=== PATIENT | female | born 1950 | race Caucasian/White ===

== ENCOUNTER → 2017-06-01 | Outpatient (CLI) | payer OTHER ==
[~2017-06-01] VITALS: Ht 160 cm; Wt 83.9 kg
[~2017-06-01] MED LIST: LIPITOR10 MG PO; LISINOPRIL-HCT1 EAC2 PO; TOPROL XL25 MG PO
--- NOTE | ~2017-06-01 | S ---
[facility] [place] [address] SURGICAL PATH RPT PROCEDURE Name: RIIS HOBSON Ino Room #: REG [facility].#: [id number] Admission: 06/01/17 Date of : 46 Discharge: Report #: [id number] Path Case #: [id number] PATHOLOGY REPORT COLLECTION DATE: 06/01/2017 RECEIVED DATE: 06/01/2017 SUBMITTING PHYS: Dr. Red Esteves OTHER PHYS: Dr. Jefe Brown SPECIMEN(S) RECEIVED: A.Polyp at cecum B.Polyp at 60 cm * * * * * * * * * * * * FINAL DIAGNOSIS: A. Polyp, cecum, endoscopic biopsy: - Tubular adenoma. - Negative for high grade dysplasia. B. Polyp, at 60 cm, endoscopic biopsy: - Hyperplastic polyp. - Negative for dysplasia. (IUV:pit; 06/02/2017) PATHOLOGIST: Edwige Fields M.D. REPORT ELECTRONICALLY SIGNED BY: Edwige Fields M.D. DATE/TIME: 06/02/2017 14:23 * * * * * * * * * * * * GROSS PATHOLOGY: A. Received in formalin labeled "Iris Hobson, polyp cecum," is a segment of byers soft tissue measuring 0.5 cm in maximum dimension. The specimen is submitted entirely in cassette A1. B. Received in formalin labeled "Iris Hobson, polyp at 60 cm," are 2 segments of byers soft tissue measuring 0.7 x 0.2 x 0.2 cm in aggregate dimensions and ranging from 0.3 to 0.4 cm in maximum dimension. The specimen is submitted entirely in cassette B1. (TSD; 06/01/2017) CLINICAL HISTORY: History of polyps INITIAL CPT CODE(S): A; 22907 B; 71544 Professional services performed by [facility] at [facility] [address] [place] [address] SURGICAL PATH RPT PROCEDURE Name: IRIS HOBSON Room #: EYL Nino#: [id number] Admission: 06/01/17 Date of : 46 Discharge: Report #: [id number] Path Case #: [id number] [address], [place] [address] Technical services performed by [facility] at [address] [place] [address], [facility] [address] [address]. [place] [address] PHONE: [phone] DIRECTOR: Dante Knowles M.D. * * * END OF REPORT * * *
--- NOTE | ~2017-06-01 | P ---
[facility] [place] [address] PROCEDURE REPORT Name: PARESH HOBSON Room #: REG [facility]#: [id number] Admission: 06/01/17 Attend Phys: Red Esteves MD Discharge: Date of : 46 Report #: [id number] THIS REPORT FOR: //name// CC: Red Brown MD BRIEF HISTORY: The patient is a 67-year-old woman with a history of colon polyps including a proximal ascending colon polyp with recurrent polyp at the tattoo sites about 3 years ago. She was advised to return in 6 months and is now presenting. She has no new complaints. PREOPERATIVE DIAGNOSIS: History of colon polyps. POSTOPERATIVE DIAGNOSES: 1. Colon polyps. 2. Moderately severe diverticulosis coli. 3. Small hemorrhoids. MEDICATIONS: Deep sedation with propofol per anesthesia. SPECIMENS: 1. Diminutive polyp, cecum. 2. Diminutive polyp at 60 cm. ESTIMATED BLOOD LOSS: 3 mL. PROCEDURE: Colonoscopy to cecum and terminal ileum with biopsy. FINDINGS: Prior to propofol sedation, the procedure of colonoscopy discussed with the patient as well as potential risks, benefits, and complications. She indicates she understands and desires to proceed. With the patient in left lateral decubitus position, digital examination was completed, which revealed no abnormalities. Subsequently, the Singspiel video colonoscope was introduced in the rectum, advanced under direct vision to the cecum. Done with minimal difficulty. Cecum was identified by the ileocecal valve and the appendiceal orifice. I was able to visualize the distal segment of terminal ileum, which was noted to be unremarkable. At that point, the scope was slowly withdrawn and careful circumferential views obtained including retroflexing the scope in the ascending colon. Upon slow withdrawal of the scope, the prep was noted to be excellent. The mucosa was within normal limits, normal vascular pattern, and normal light reflex. Within the cecum, a diminutive polyp was seen and removed by biopsy. The scope was further withdrawn and the tattoos at the old polypectomy site were identified. Scarring was seen consistent with previous polypectomy. No residual polyp tissue was seen at this level. The scope was further withdrawn and no additional [facility] [address] [place] [address] PROCEDURE REPORT Name: PARESH HOBSON Room #: REG [facility].#: [id number] Admission: 06/01/17 Attend Phys: Red Esteves MD Discharge: Date of : 46 Report #: [id number] abnormalities were noted until about 60 cm upon withdrawal, at which point another diminutive polyp was seen and removed by biopsy. The scope was further withdrawn and there was noted to be moderately severe diverticular disease of the sigmoid colon without endoscopic evidence of diverticulitis. The scope was withdrawn in the rectum and no abnormalities were noted until the scope was retroflexed and small hemorrhoids were seen. The scope was withdrawn. The patient tolerated the procedure well. CONDITION OF THE PATIENT UPON DISCHARGE: Following procedure, the patient drowsy, aroused, conversant and will be discharged to home when fully ambulatory. INSTRUCTIONS TO THE PATIENT AND FAMILY AT THE TIME OF DISCHARGE: Two diminutive polyps identified as noted above. The previous polypectomy site was clean today. We will follow up on the path. At this point, we would suggest followup colon exam in 5 years. She will return to care of Dr. Jefe Brown and return to see me as needed. Last colonoscopy was 07/07/2014. Withdrawal time from the cecum was 9 minutes 28 seconds. <ELECTRONICALLY SIGNED> By: Red Esteves MD 06/02/17 1015 [id number] Red Esteves MD /nt
== END | disposition home or self-care (01) ==
LOC: GI 06:49
DX: Z09 Encounter for follow-up examination after completed treatment for conditions other than malignant neoplasm (principal); Z86.010 Personal history of colon polyps; D12.0 Benign neoplasm of cecum; K63.5 Polyp of colon; K57.30 Diverticulosis of large intestine without perforation or abscess without bleeding; K64.8 Other hemorrhoids; I10 Essential (primary) hypertension; E78.5 Hyperlipidemia, unspecified; Z90.710 Acquired absence of both cervix and uterus; Z98.890 Other specified postprocedural states; Z79.899 Other long term (current) drug therapy; Z88.0 Allergy status to penicillin
CPT/HCPCS: 62110; 62900